=== PATIENT | male | born 1945 | race Caucasian/White ===

== ENCOUNTER → 2016-12-07 | Outpatient (CLI) | payer MEDICARE | END | disposition home or self-care (01) | LOC: LABPAT 12:11 | PROVIDERS: ATTEND Orthopaedic Surgery | DX: Z01.812 Encounter for preprocedural laboratory examination (principal) | CPT/HCPCS: 87070 ==

== ENCOUNTER → 2016-12-08 | Outpatient (CLI) | payer MEDICARE ==
--- NOTE | 2016-12-08 09:16 | XR ---
EXAMINATION TYPE: XR chest 2V DATE OF EXAM: 12/08/2016 9:01 AM HISTORY: I25.10atherosclerotic heart disease. REFERENCE: Previous study dated 05/10/2015 as well as a previous CT scan of the chest dated 06/05/2015. FINDINGS: Pleural-based lipoma on the right is unchanged in size and appearance. There is some chronic increased markings in the left lung base. Lungs are otherwise clear. Heart size is normal. There is no evidence of effusion. Note is made of bilateral shoulder prostheses. IMPRESSION: 1. STABLE PLEURAL-BASED LIPOMA ON THE RIGHT. 2. CHRONIC INCREASED MARKINGS THE LEFT LUNG BASE. 3. NO ACUTE INTRATHORACIC ABNORMALITY.
[2016-12-08 09:52] LABS: Basophils % (A) 0 %; CH 30.7; CHCM 33.8; Eosinophils # (A) 0.1 k/uL (0-0.7); Eosinophils % (A) 2 %; HCT 46.4 % (39.0-53.0); HDW 2.36; HGB 15.4 gm/dL (13.0-17.5); Luc # (Auto) 0.13; Luc % (Auto) 3; Lymphocytes # (A) 1.4 k/uL (1.0-4.8); Lymphocytes % (A) 28 %; MCH 30.3 pg (25.0-35.0); MCHC 33.3 g/dL (31.0-37.0); MCV 91.1 fL (80.0-100.0); Mean Platelet Volume 6.6; Monocytes # (A) 0.3 k/uL (0-1.0); Monocytes % (A) 5 %; Neutrophils # (A) 3.2 k/uL (1.3-7.7); Neutrophils % (A) 62 %; RBC 5.09 m/uL (4.30-5.90); RDW 13.1 % (11.5-15.5); WBC 5.1 k/uL (3.8-10.6); WBC (Perox) 5.04
[2016-12-08 09:57] LABS: Partial Thromboplastin Time 24.1 sec (22.0-30.0); Prothrombin Time 10.1 sec (9.0-12.0)
[2016-12-08 10:17] LABS: Anion Gap 12 mmol/L; Blood Urea Nitrogen 26 mg/dL (9-20); Calcium 9.5 mg/dL (8.4-10.2); Carbon Dioxide 27 mmol/L (22-30); Chloride 104 mmol/L (98-107); Glucose 123 mg/dL (74-99); Non-African American GFR(MDRD) >60 (>60 ml/min/1.73 sqM); Sodium 143 mmol/L (137-145)
[2016-12-08 10:29] LABS: Potassium 4.8 mmol/L (3.5-5.1)
== END | disposition home or self-care (01) ==
LOC: LABPAT 08:29
PROVIDERS: ATTEND Internal Medicine
DX: D17.1 Benign lipomatous neoplasm of skin and subcutaneous tissue of trunk (principal); Z01.812 Encounter for preprocedural laboratory examination
CPT/HCPCS: 36415; 71020; 80048; 85025; 85610; 85730

== ENCOUNTER 2016-12-22 08:42 | Inpatient (IN) | payer MEDICARE ==
[2016-12-17 08:12] VITALS: BMI 33.0
--- NOTE | 2016-12-21 11:00 | HP ---
DATE OF ADMISSION: CHIEF COMPLAINT: Left knee pain. HISTORY OF PRESENT ILLNESS: The patient is a 71-year-old retired gentleman who presents with progressive left knee pain secondary to osteoarthrosis worsening over the past several months despite extensive conservative treatment. He notes it severely limits him. He is having night symptoms. Past medical history significant for type 2 diabetes, hypercholesterolemia, arthritis, coronary artery disease. PAST SURGICAL HISTORY: Significant for bilateral total shoulder arthroplasty in addition to left knee arthroscopy. CURRENT MEDICATIONS: 1. Atorvastatin. 2. Metformin. 3. Ibuprofen. He denies drug allergies. FAMILY HISTORY: Significant for cancer. SOCIAL HISTORY: Significant for previous heavy tobacco use; however, he quit in 1979. He admits to daily alcohol use. Sixteen-point review of systems otherwise reviewed and is noncontributory. On examination, the patient is approximately 5 foot 10, 230 pounds of endomorphic habitus. HEENT exam is nonfocal. Neck is supple. He has painless passive motion of his left hip. Straight leg raise is negative. Active motion left knee -10 to 105 degrees of flexion. He is tender about the medial joint line. He has a moderate effusion. Collaterals are stable, Mario's negative, Vanessa's is equivocal. His distal neurovascular exam appears be intact in the left lower extremity. He has genu varum alignment. Weight-bearing, notch, lateral, and merchant views of the left knee obtained in the office show severe medial compartment narrowing. IMPRESSION: 1. Left knee severe medial compartment osteoarthrosis. 2. Increased body mass index. RECOMMENDATIONS: I talked to the patient at length regarding his treatment options. At this point he is quite symptomatic despite extensive conservative measures. After thorough discussion, he opts to proceed with surgery. We will plan to proceed with left total knee arthroplasty. We will institute DVT prophylaxis postoperatively. He underwent preoperative medical evaluation by Dr. Mathias.
[~2016-12-22 08:42] MED LIST: ACETAMINOPHEN TAB 500 MG TAB PO ONE; DEXAMETHASONE SOD PHOSPHATE 10 MG/ML 1 ML VIAL IV ONE; MELOXICAM 7.5 MG TAB PO ONE; MORPHINE SULFATE 4 MG/ML SYRINGE IV PRN; ONDANSETRON 4 MG/2 ML VIAL IVP ONE; TRANEXAMIC ACID 1,000 MG in SODIUM CHLORIDE 0.9% 100 ML IVPB ONE; ceFAZolin 2 GM in SODIUM CHLORIDE 0.9% 100 ML IVPB ONE
[2016-12-22 09:19] LABS: Glucose,Whole Blood 114 mg/dL (75-99)
[2016-12-22] MEDS: LACTATED RINGERS 1,000 ML IV SCH (09:20)
[2016-12-22] MEDS: MIDAZOLAM 2 MG/2 ML VIAL IV PRN ×2 (09:21→09:31)
[2016-12-22] MEDS ORDERED: LIDOCAINE 1% 20 ML VIAL (10MG/ML) FOR IV START INTRADERMA ONE (09:22)
[2016-12-22] MEDS ORDERED: ROPIVACAINE 246.25 MG, EPINEPHrine 0.5 MG, KETOROLAC 30 MG, cloNIDine HCL/PF 80 MCG, WA... MISCELLANE ONE ×5 (10:18)
[2016-12-22] MEDS ORDERED: MIDAZOLAM 2 MG/2 ML VIAL ONE (10:40)
[2016-12-22] MEDS ORDERED: ROPIVACAINE 1,100 MG, SODIUM CHLORIDE 0.9% 330 ML MISCELLANE PRN ×2 (10:40)
[2016-12-22] MEDS ORDERED: PROPOFOL 10 MG/ML 20 ML VIAL IV ONE (10:40)
[2016-12-22] MEDS ORDERED: SODIUM CHLORIDE 0.9% 100 ML BAG ONE (10:40)
[2016-12-22] MEDS ORDERED: TRANEXAMIC ACID 1,000 MG/10 ML VIAL ONE (10:40)
[2016-12-22] MEDS ORDERED: PHENYLEPHRINE-0.9% NACL SYG 1 MG/10 ML SYRINGE ONE (10:40)
[2016-12-22] MEDS ORDERED: ePHEDrine 50 MG/ML 1 ML AMP ONE (10:40)
--- NOTE | 2016-12-22 10:42 | P.ONQ ---
Anesthesiology Proc Note - PNB - Peripheral Nerve Block Performed Left Adductor Canal Infusion Time Out Performed: Yes Indication: Acute Post-Operative Pain, Analgesia Sedation Type: Sedate with meaningful contact maintained Preparation: Sterile Prep Position: Supine Catheter Depth at Skin (cm): 8 Catheter: Indwelling Needle Types: On-Q Needle Size: 100mm (4") Needle Gauge: 20 Technique: Ultrasound Injectate: 0.5% Ropivacaine (see comment for volume) (20 cc) Blood Aspirated: No Pain Paresthesia on Injection Noted: No Resistance on Injection: Normal Events: Uneventful and Well Tolerated
[2016-12-22] MEDS ORDERED: ceFAZolin 3,000 MG in SODIUM CHLORIDE 0.9% IRRIGATIO 3,000 ML IRRIGATION ONE (11:24)
[2016-12-22] MEDS ORDERED: LACTATED RINGERS 1,000 ML IV ONE ×2 (11:30→12:50)
[2016-12-22] MEDS ORDERED: MAGNESIUM HYDROXIDE 2,400 MG/10 ML CUP PO PRN (13:01)
[2016-12-22] MEDS ORDERED: ONDANSETRON 4 MG/2 ML VIAL IVP PRN (13:01)
[2016-12-22] MEDS ORDERED: HYDROcodone/APAP 7.5-325MG 1 EACH TAB PO PRN (13:01)
[2016-12-22] MEDS ORDERED: NALOXONE 0.4 MG/ML 1 ML VIAL IV PRN (13:01)
[2016-12-22] MEDS ORDERED: HYDROmorphone 1 MG/ML 1 ML SYRINGE IVP PRN ×2 (13:01)
[2016-12-22] MEDS ORDERED: ROPIVACAINE 5 MG/ML 30 ML VIAL MISCELLANE ONE (13:33)
--- NOTE | 2016-12-22 13:39 | P.OP ---
Date of Procedure: 12/22/16 Preoperative Diagnosis: Severe left knee tricompartmental osteoarthrosis-primary Postoperative Diagnosis: Same Procedure(s) Performed: Left total knee ialsmvghltlh-jldsexuo-vllaiqrf retaining Implants: Depuy Attune size 8 cemented femoral component, size 7 cemented tibial component , 9 mm articular surface, 38 mm cemented patellar component. This is a cruciate retaining implant. Anesthesia: regional, local, spinal Surgeon: Enrico Bird Slide Fastener Repairer #1: Efren Craven Estimated Blood Loss (ml): 75 Pathology: other (Bone fragments) Condition: stable Disposition: PACU Indications for Procedure: The patient is a 71-year-old male who presents with progressive left knee pain secondary to osteoarthrosis despite conservative measures. He discussion of the risks and benefits of operative intervention versus continued conservative measures was made with patient. He opted to proceed with surgery. Operative risks to include infection, neurovascular injury, fracture, component loosening , component failure and possible need for subsequent procedures was discussed. Informed consent was obtained. Operative Findings: As below Description of Procedure: The patient was brought to the operating room, and after induction of spinal anesthesia the left lower extremity was prepped and draped in normal fashion. The limb was elevated to facilitate exsanguination. The tourniquet was inflated to 270 mmHg. A longitudinal incision extending 3 finger breaths above this. Pole patella extending to the medial aspect of the tibial tubercle was then made. The skin and subcutaneous tissues were divided sharply. Electrocautery was used for hemostasis. A medial parapatellar arthrotomy is performed. The medial soft tissues to include the superficial and deep portions of the medial collateral ligament as well as the medial hamstring tendons were elevated subperiosteally. The proximal medial tibial osteophytes were carefully removed. The patella was everted. A portion of the retropatellar fat pad was excised sharply. The anterior cruciate ligament was sacrificed. A starting hole was made in the distal femur 1 cm anterior to the posterior cruciate ligament origin. An intramedullary guide was then gently inserted planning on 5 valgus distal cut with 9 mm distal resection. The cutting block was pinned in place. The distal cut was then made. The posterior referencing sizing guide was utilized. 3 of external rotation was built into the system and verified off the trans-epicondylar axis and the posterior condyles. The cutting block was pinned in place. I felt size 8 was most appropriate. The anterior, posterior, and chamfer cuts were made. The bone fragments were removed. The notch cutting guide was placed and the notch cut was made. The size 8 femoral component was placed and was fully seated. There is good anterior to posterior and medial to lateral fit. The distal peg holes were drilled. The trial component was removed. The extra medullary tibial guide was utilized planning on 7 posterior slope with 2 mm resection from the medial compartment. The extra medullary guide was in line with the tibial shaft and second metatarsal distally. The cutting block was pinned in place. The posterior cruciate ligament was protected with a retractor. The proximal tibial cut was made. The bone fragment was removed. This appeared be inadequate therefore an additional 2 mm was resected utilizing the cutting block. The remnants of the medial lateral menisci were excised at the capsular junction with electrocautery. The tibia sized most appropriately size 7. The trial femoral and tibial components were placed along with a 9 mm articular surface. I was able to obtain full flexion and extension with good stability with varus and valgus stress. After several flexion and extension cycles the tibial rotation was marked with electrocautery in line with the medial one third of the tibial tubercle. Attention was then paid towards preparing the patella. A patella reamer was utilized taking this down to 14 mm of bone stock. A good flush cut was made. The patella sized most appropriately at 38 mm. The peg holes were drilled. The trial component was placed. The knee was taken through range of motion. I had good patellofemoral tracking with no hands technique. The trial components were then removed. The posterior osteophytes of the distal femur were carefully removed with a curved osteotome. The tibial was prepared in the appropriate rotation with appropriate drill and keel punch. Several additional drill holes were made in the proximal medial tibia to facilitate cement interdigitation. The posterior capsule was injected with ropivacaine. The bony surfaces were prepared with pulsatile lavage and dried. The tibial component was then cemented in placed and was fully seated. Excess cement was removed. The femoral component was cemented in placed and was fully seated. Excess cement was removed. The trial 9 mm articular surface was placed and the knee was put in full extension. I attempted to cement the patellar component placed however the cement had already hardened significantly. Another batch of cement was utilized for placement of the patella. This was then fully seated and excess cement was removed. After the cement had sufficiently hardened, the knee was again taken through range of motion. I had good patellofemoral tracking. The knee was stable in flexion and extension with varus valgus stress. The trial articular surface was removed and the final 9 mm articular surface was placed. This was fully seated. Care was taken to avoid any soft tissue interposition. Pulsatile lavage was again utilized. The medial parapatellar arthrotomy was closed with #2 Ethibond suture. A deep drain was placed exiting laterally. The tourniquet was deflated prior to final arthrotomy closure with approximately 90 minutes total tourniquet time. The subcutaneous tissues were reapproximated with interrupted 2-0 Vicryl sutures. The skin was reapproximated with 3-0 subcuticular strata fix suture. Skin tape and adhesive was applied. A sterile dressing was applied. The patient was then awoken from sedation and transferred to the recovery room in good condition. He did receive 2 doses of IV TXA. Blood loss was estimated at 75 mL. No complications were incurred. Sponge and needle counts were correct at the end the case.
[2016-12-22 13:41] LABS: Glucose,Whole Blood 156 mg/dL (75-99)
--- NOTE | 2016-12-22 15:00 | XR ---
EXAMINATION TYPE: XR knee limited LT DATE OF EXAM: 12/22/2016 1:52 PM COMPARISON: NONE HISTORY: Postop alignment TECHNIQUE: 2 view left knee FINDINGS: Tibial and femoral components of in place. No acute fractures are evident. Cysts postsurgic al changes are present. IMPRESSION: 1. No fracture post left knee replacement.
[2016-12-22 16:43] VITALS: RESP 16
[2016-12-22 17:17] LABS: Glucose,Whole Blood 169 mg/dL (75-99)
[2016-12-22] MEDS: traMADol 50 MG TAB PO SCH ×2 (17:38→22:23)
[2016-12-22] MEDS: ceFAZolin 2 GM in SODIUM CHLORIDE 0.9% 100 ML IVPB SCH (17:42)
[2016-12-22] MEDS: INSULIN LISPRO (humaLOG) 300 UNIT/3 ML VIAL SQ SCH ×2 (17:44→20:41)
[2016-12-22 19:54] LABS: Glucose,Whole Blood 207 mg/dL (75-99)
[2016-12-22] MEDS: metFORMIN 500 MG TAB PO SCH (20:40)
[2016-12-22] MEDS ORDERED: SENNOSIDES-DOCUSATE SODIUM 1 EACH TAB PO SCH (21:00)
[2016-12-23] MEDS: ceFAZolin 2 GM in SODIUM CHLORIDE 0.9% 100 ML IVPB SCH (01:57)
[2016-12-23] MEDS: LACTATED RINGERS 1,000 ML IV SCH (01:57)
[2016-12-23] MEDS: HYDROcodone/APAP 7.5-325MG 1 EACH TAB PO PRN ×2 (06:27→13:17)
[2016-12-23 07:09] LABS: Glucose,Whole Blood 108 mg/dL (75-99)
[2016-12-23] MEDS: INSULIN LISPRO (humaLOG) 300 UNIT/3 ML VIAL SQ SCH ×2 (07:52→11:17)
[2016-12-23 07:53] LABS: Basophils % (A) 0 %; CHCM 33.5; Eosinophils % (A) 0 %; HCT 38.4 % (39.0-53.0); HDW 2.35; Luc # (Auto) 0.12; Luc % (Auto) 2; Lymphocytes # (A) 1.2 k/uL (1.0-4.8); Lymphocytes % (A) 14 %; MCH 31.5 pg (25.0-35.0); MCHC 33.9 g/dL (31.0-37.0); MCV 92.9 fL (80.0-100.0); Mean Platelet Volume 6.8; Monocytes # (A) 0.5 k/uL (0-1.0); Monocytes % (A) 6 %; Neutrophils # (A) 6.5 k/uL (1.3-7.7); Neutrophils % (A) 78 %; RBC 4.13 m/uL (4.30-5.90); RDW 13.2 % (11.5-15.5); WBC 8.3 k/uL (3.8-10.6); WBC (Perox) 8.87
--- NOTE | 2016-12-23 07:53 | P.PN ---
Progress Note - Text 0720 anesthesia POD 1. Patient is status post left TKR under spinal anesthesia with a left adductor canal catheter placed for postoperative pain relief. With ropivacaine 0.2% running at 8 mL per hour patient reports a VAS of (0, 2) anteriorly. Posterior aspect of the knee is slightly more uncomfortable. Catheter site is clean and dry and the dressing is intact.
[2016-12-23 08:02] VITALS: BP 120/75; PULSE 80; TEMP 98.4
[2016-12-23] MEDS: metFORMIN 500 MG TAB PO SCH (08:40)
[2016-12-23] MEDS: traMADol 50 MG TAB PO SCH (08:40)
[2016-12-23] MEDS ORDERED: MELOXICAM 7.5 MG TAB PO SCH (09:00)
[2016-12-23] MEDS ORDERED: RIVAROXABAN 10 MG TAB PO SCH (09:00)
[2016-12-23] MEDS ORDERED: ATORVASTATIN 40 MG TAB PO SCH (09:00)
[2016-12-23] MEDS ORDERED: FAMOTIDINE 20 MG TAB PO SCH (09:00)
--- NOTE | 2016-12-23 10:58 | P.PN ---
Subjective Principal diagnosis: Status post left total knee arthroplasty Patient is seen today resting in his hospital bed, he appears to be in no acute distress. Pain has been controlled well with oral medication. Urinary cath was removed, he is doing well with therapy. He denies any chest pain, shortness of breath, fever chills, nausea or vomiting. Objective - Vital Signs Vital signs: Vital Signs Temp 98.4 F 12/23/16 08:00 Pulse 80 12/23/16 08:00 Resp 16 12/23/16 08:00 BP 120/75 12/23/16 08:00 Pulse Ox 93 L 12/23/16 08:00 Intake & Output 12/22/16 12/23/16 12/23/16 18:59 06:59 18:59 Intake Total 2201 990 Output Total 1445 970 800 Balance 756 20 -800 Weight 104.326 kg 104.326 kg Intake: IV 2201 400 Lactated Ringers 1,000 ml 400 @ 50 mls/hr IV .Q20H [facility] Rx#:[id number] Oral 590 Output: Drainage 120 90 Left Knee 120 90 Urine 1250 880 800 Uretheral (Thomason) 880 300 Estimated Blood Loss 75 Other: Voiding Method Indwelling Catheter Indwelling Catheter Indwelling Catheter - Exam Left lower extremity: Incisions clean, dry, and intact. Minimal soft tissue swelling present on the knee. Plantar flexion, dorsiflexion, EHL, FHL are intact. Calf is soft, no tenderness with palpation. Sensory exam light touch throughout the extremities intact, dorsal pedis pulses 2+. - Labs CBC & Chem 7: 12/23/16 07:15 Labs: Abnormal Lab Results - Last 24 Hours (Table) 12/22/16 12/22/16 12/22/16 Range/Units 13:38 17:14 19:52 RBC (4.30-5.90) m/uL Hct (39.0-53.0) % POC Glucose (mg/dL) 156 H 169 H 207 H (75-99) mg/dL 12/23/16 12/23/16 Range/Units 07:06 07:15 RBC 4.13 L (4.30-5.90) m/uL Hct 38.4 L (39.0-53.0) % POC Glucose (mg/dL) 108 H (75-99) mg/dL Assessment and Plan Plan: Assessment: 1. Postop day #1 status post left total knee arthroplasty Plan: 1. Pain control, we'll discharge home on oral meds 2. Wound care was discussed with patient 3. Patient advised to ice and elevate 4. Home therapy and CPM 5. GI and DVT prophylaxis, Xarelto 10 mg once a day 6. Medical recommendations 7. Discharge planning: Patient will be discharged likely today Time with Patient: Less than 30
--- NOTE | 2016-12-23 11:00 | P.DS ---
Providers Date of admission: 12/22/16 08:42 Expected date of discharge: 12/23/16 Attending physician: Enrico Bird Consults: 12/22/16 13:04 Consult Physician Routine Consulting Provider: Joey Esquivel Consult Reason/Comments: Medical Management Do you want consulting provider notified?: Yes Primary care physician: [facility] Course: Date of admission: 12/22/2016 Date of discharge: 12/23/2016 Admission diagnosis: Status post left total knee arthroplasty Discharge diagnosis: Same Attending physician: Dr. Bird Surgical procedures: Left total knee arthroplasty Brief history: Patient is a 71-year-old male with a history of progressive primary left knee osteoarthritis. At this point patient has failed conservative treatment measures and has opted to proceed with a elective left total knee arthroplasty. Hospital course: Details of patient's surgery can be found in operative report. Patient tolerated the procedure well and was subsequently transported to orthopedic floor. Patient's orthopeidc and medical care was provided daily. Patient had daily laboratory tests performed for evaluation of overall blood counts. Patient had daily physical therapy to include strengthening range of motion as well as education with walker ambulation. Patient had daily CPM usage as part of their physical therapy program. Patient was treated with Xarelto for their postoperative DVT prophylaxis during their inpatient stay. Patient was noted to have a relatively uneventful postoperative course. Patient reported satisfactory pain control with oral pain medications by postoperative day 0. Patient showed satisfactory progress with physical therapy. Patient moved steadily through the program and had no difficulty meeting the goals by postoperative day 1. Given patient's otherwise satisfactory course and having met physical therapy goals, plan is to discharge patient home on postoperative day 1. Discharge condition/disposition: Patient will be discharged home in stable condition. Discharge medications: Instructions are given on resumption of patient's normal daily medications per primary care recommendation, in addition patient will be prescribed [place] 7.5 mg/325 mg, tramadol 50 mg, Colace 100 mg, Pepcid 20 mg, Xarelto 10 mg. Discharge instructions: 1. Wound care and infection precautions, keep incision dry and covered while showering, no lotions, creams, moisturizers. No soaking, tubs, pools, hottubs. Do not scrub over the incision. 2. Weight-bear as tolerated with walker / cane until follow-up. 3. Ice and elevate when necessary. Do not exceed 20 minutes per hour with ice pack. 4. Utilize compression sleeve until seen at first follow up appointment. 5. Visiting nursing care. 6. Home physical therapy including home CPM. 7. Pain meds and anticoagulants per prescription. 8. Pain medication has potential to cause constipation. Increase oral fluid and fiber intake. Contact primary care provider if you have not had a bowel movement within 48 hours after discharge 9. No anti-inflammatory medication until discussed at first post operative visit, this including Motrin, Aleve, Mobic, Diclofenac. 10. Follow up in office at 2 weeks postop with Leroy Craven PA-C 11. Follow up with your primary care doctor 7-10 days after discharge. 12. Contact [facility] with any questions, . Procedures: Left total knee arthroplasty Patient Condition at Discharge: Good Plan - Discharge Summary New Discharge Prescriptions: Docusate [Colace] 100 mg PO DAILY #30 capsule Famotidine [Pepcid] 20 mg PO DAILY #30 tablet HYDROcodone/APAP 7.5-325MG [[place] 7.5] 1 - 2 each PO Q6HR PRN #60 tab PRN Reason: Pain Rivaroxaban [Xarelto] 10 mg PO DAILY #12 tab traMADol HCl [Ultram] 50 mg PO Q6H PRN #40 tab PRN Reason: Pain Discharge Medication List Atorvastatin [Lipitor] 40 mg PO DAILY 05/03/15 [History] Echinacea 400 mg PO DAILY 05/03/15 [History] Multivitamin [Men's Multi-Vitamin] 1 tab PO DAILY 05/03/15 [History] metFORMIN HCL [Glucophage] 500 mg PO BID 05/03/15 [History] Ascorbic Acid [Vitamin C] 500 mg PO DAILY 08/03/16 [History] Cinnamon Bark [Cinnamon] 1,000 mg PO DAILY 08/03/16 [History] Aspirin [Adult Low Dose Aspirin EC] 81 mg PO DAILY 12/17/16 [History] Rivaroxaban [Xarelto] 10 mg PO DAILY #12 tab 12/22/16 [Rx] Docusate [Colace] 100 mg PO DAILY #30 capsule 12/23/16 [Rx] Famotidine [Pepcid] 20 mg PO DAILY #30 tablet 12/23/16 [Rx] HYDROcodone/APAP 7.5-325MG [[place] 7.5] 1 - 2 each PO Q6HR PRN #60 tab 12/23/16 [ Rx] traMADol HCl [Ultram] 50 mg PO Q6H PRN #40 tab 12/23/16 [Rx] Follow up Appointment(s)/Referral(s): Efren Craven PAC [PHYSICIAN M48 M60 [employer]] - 2 Weeks Activity/Diet/Wound Care/Special Instructions: Orthopedic Discharge Instructions: 1. Wound care and infection precautions, keep incision dry and covered while showering, no lotions, creams, moisturizers. No soaking, pools, hot tubs. Do not scrub over incision. 2. Weight-bear as tolerated with walker / cane until follow-up. 3. Ice and elevate when necessary. Do not exceed 20 minutes per hour with ice pack. 4. Utilize compression sleeve until seen at first follow up appointment. 5. Visiting nursing care. 6. Home physical therapy including home CPM. 7. Pain meds and anticoagulants per prescription. 8. Pain medication has potential to cause constipation. Increase oral fluid and fiber intake. Contact primary care provider if you have not had a bowel movement within 48 hours after discharge. 9. No anti-inflammatory medication until discussed at first post operative visit, this including Motrin, Aleve, Mobic, Diclofenac. 10. Follow up in office at 2 weeks postop with Leroy Craven PA-C 11. Follow up with your primary care doctor 7-10 days after discharge. 12. Contact [facility] with any questions, . Discharge Disposition: HOME WITH HOME HEALTH SERVICES
[2016-12-23 11:16] LABS: Glucose,Whole Blood 115 mg/dL (75-99)
[2016-12-23] MEDS ORDERED: MULTIVITAMINS, THERA 1 EACH TAB PO SCH (12:00)
--- NOTE | 2016-12-23 12:57 | CONS ---
DATE OF CONSULTATION: 12/23/2016 REASON FOR CONSULTATION: Medical management requested by Dr. Bird. CONSULTATION: This is a very pleasant 71-year-old patient of Dr. Lucas Mathias. Patient undergone a left total knee arthroplasty. Patient has some pain there. No chest pain, short of breath. No nausea, vomiting. Has been using physical therapy. Patient's is at the bedside. Patient's chronic stable medical conditions include diabetes mellitus type 2, hyperlipidemia. Had a WI many years ago, cardiac cath showed normal coronaries, suspected vasospasm and varicose veins. REVIEW OF SYSTEMS: CONSTITUTIONAL: None. HEENT: None. RESPIRATORY: None. CARDIOVASCULAR: None. GASTROINTESTINAL: None. GENITOURINARY: None. MUSCULOSKELETAL: Pain in the joints. DERMATOLOGICAL: Varicose veins. HEMATOLOGICAL: None. LYMPHATIC: None. PSYCHIATRY: None. NEUROLOGICAL: None. Past history of diabetes, hyperlipidemia, myocardial infarction, varicose veins, osteoarthritis. PAST SURGICAL HISTORY: Cardiac catheterization, normal coronaries, joint replacement, bilateral shoulder replaced, lump removed from the neck and right arm, left knee surgery. SOCIAL HISTORY: Patient smoked for about 20 years; stopped in 1979, retired. Did work at [employer] and then did [employer]. . On examination, temperature 98.4, pulse 80, respirations 16, blood pressure 120/75, pulse ox 93% on room air. GENERAL APPEARANCE: Well built, BMI of 33, sitting at the edge of bed, comfortable. EYES: Pupils equal. Conjunctivae normal. NECK: JVD not raised. Mass not is palpable. RESPIRATORY: Effort normal. Lungs are clear. CARDIOVASCULAR: First and second sounds normal. No edema. ABDOMEN: Soft, nontender. Liver and spleen not palpable. LYMPHATIC: No lymph nodes palpable in the neck or axillae. PSYCHIATRY: Alert and oriented x3. Mood and affect normal. EXTREMITIES: Lower extremities varicose veins are present, left knee in a dressing, evidence of osteoarthritis, especially in the hands. INVESTIGATIONS: White count 8.3, hemoglobin 13, BUN and creatinine are normal. ASSESSMENT: 1. Left total knee arthroplasty for osteoarthritis. 2. Diabetes mellitus type 2, on oral hyperglycemia. 3. Hyperlipidemia. 4. Varicose veins in the lower extremity, especially the left leg. PLAN: Patient's home medications will be resumed. Accu-Cheks to be followed. Patient is getting Xarelto for DVT prophylaxis. Care was discussed with the patient. Thank you, Dr. Bird.
[2016-12-23 15:58] LABS: Hemoglobin A1C 5.7 % (4.2-6.1)
--- NOTE | 2017-01-27 22:22 | CONS ---
DATE OF CONSULTATION: 12/23/2016 ADDENDUM: FAMILY HISTORY: Colon cancer. HOME MEDICATIONS: 1. Glucophage 5 mg b.i.d. 2. Men's multivitamin 1 tablet p.o. daily. 3. Supplements include. 4. Echinacea. 5. Cinnamon. 6. Vitamin C. 7. Lipitor 40 mg a day. 8. Aspirin 81 mg a day. 9. Vitamin C 500 mg a day. 10. Pepcid 20 mg a day.
== END 2016-12-23 13:59 | disposition home health service (06) | DRG 470 ==
LOC: 2ORMAIN 08:42 → 3SUR 13:23
PROVIDERS: ADMIT Orthopaedic Surgery; ATTEND Orthopaedic Surgery
PROC: 0SRD0J9 Replacement of Left Knee Joint with Synthetic Substitute, Cemented, Open Approach (ICD-10-PCS; principal; 2016-12-22 10:35)
DX: M17.12 Unilateral primary osteoarthritis, left knee (principal); E11.65 Type 2 diabetes mellitus with hyperglycemia; E78.00 Pure hypercholesterolemia, unspecified; E78.5 Hyperlipidemia, unspecified; I25.10 Atherosclerotic heart disease of native coronary artery without angina pectoris; I83.90 Asymptomatic varicose veins of unspecified lower extremity; M21.162 Varus deformity, not elsewhere classified, left knee; Z87.891 Personal history of nicotine dependence; Z79.84 Long term (current) use of oral hypoglycemic drugs; Z79.1 Long term (current) use of non-steroidal anti-inflammatories (NSAID); Z79.899 Other long term (current) drug therapy
CPT/HCPCS: 83036; 85025; 88300

== ENCOUNTER → 2020-08-22 | Outpatient (CLI) | payer MEDICARE ==
[2020-08-22 08:53] LABS: Basophils % (A) 0 %; Eosinophils # (A) 0.1 k/uL (0-0.7); Eosinophils % (A) 2 %; HCT 48.8 % (39.0-53.0); HGB 15.8 gm/dL (13.0-17.5); Lymphocytes # (A) 1.6 k/uL (1.0-4.8); Lymphocytes % (A) 27 %; MCH 30.3 pg (25.0-35.0); MCHC 32.4 g/dL (31.0-37.0); MCV 93.3 fL (80.0-100.0); Mean Platelet Volume 6.4; Monocytes # (A) 0.2 k/uL (0-1.0); Monocytes % (A) 4 %; Neutrophils # (A) 3.8 k/uL (1.3-7.7); Neutrophils % (A) 64 %; Platelet Count 248 k/uL (150-450); RBC 5.24 m/uL (4.30-5.90); RDW 13.1 % (11.5-15.5); WBC 5.9 k/uL (3.8-10.6)
[2020-08-22 15:26] LABS: African American GFR (CKD) 85.6 (60.0-200.0); Albumin 4.3 g/dL (3.80-4.90); Albumin/Globulin Ratio 2.39 (1.60-3.17); Calcium 9.6 mg/dL (8.7-10.3); Chol/HDL Ratio 2.62; Globulin 1.8 g/dL (1.6-3.3); LDL Cholesterol,Calculated 77.2 mg/dL (0.0-131.0); Non-African American GFR(CKD) 73.8 (60.0-200.0); Potassium 4.6 mmol/L (3.5-5.5); Total Bilirubin 0.5 mg/dL (0.2-1.2); Total Protein 6.1 g/dL (6.2-8.2); VLDL Calculation 19.8 mg/dL (5.00-40.00)
== END | disposition home or self-care (01) ==
LOC: LABWHC1 08:06
PROVIDERS: ATTEND Internal Medicine
DX: E11.9 Type 2 diabetes mellitus without complications (principal); E78.5 Hyperlipidemia, unspecified; I10 Essential (primary) hypertension
CPT/HCPCS: 36415; 80053; 80061; 85025